=== PATIENT | female | born 1965 | race Two or more races ===

== ENCOUNTER → 2017-01-05 | Outpatient (REF) | payer OTHER | LOC: M SFHCLERA 12:53 | PROVIDERS: ATTEND Nurse Practitioner Family | DX: N30.01 Acute cystitis with hematuria (principal) ==

== ENCOUNTER → 2017-05-01 | Outpatient (REF) | payer OTHER | LOC: M SFHCPLAZ 12:51 | PROVIDERS: ATTEND Nurse Practitioner Family | DX: R31.0 Gross hematuria (principal) ==

== ENCOUNTER → 2017-05-01 | Outpatient (CLI) | payer OTHER ==
[2017-05-01 13:21] LABS: MEAN CORPUSCULAR HEMOGLOBIN 31.7 pg (27.0-33.0); MEAN CORPUSCULAR VOLUME 96.1 fl (80.0-96.0); PLATELET COUNT, AUTOMATED 256 10^3/uL (150-450); RED CELL DISTRIBUTION WIDTH 13.6 % (11.5-14.5); WHITE BLOOD COUNT 9.7 10^3/uL (4.0-10.0)
[2017-05-01 15:13] LABS: ANION GAP 7 MEQ/L (8-16); BLOOD UREA NITROGEN 20 MG/DL (7-18); CALCIUM LEVEL 9.2 MG/DL (8.5-10.1); CARBON DIOXIDE LEVEL 27 MEQ/L (21-32); CHLORIDE LEVEL 107 MEQ/L (98-107); CREATININE FOR GFR 0.64 MG/DL (0.55-1.02); GLOMERULAR FILTRATION RATE > 60.0 (>51); GLUCOSE, FASTING 75 MG/DL (70-105); POTASSIUM SERUM 4.4 MEQ/L (3.5-5.1); SODIUM LEVEL 141 MEQ/L (136-145)
== END ==
LOC: M SMT 11:23
PROVIDERS: ATTEND Nurse Practitioner Family
DX: E27.9 Disorder of adrenal gland, unspecified (principal)

== ENCOUNTER → 2020-06-08 | Outpatient (CLI) | payer OTHER ==
[~2020-06-08] MED LIST: GASTROGRAFIN SOLUTION 30ML (Q9963) As Ordered ONE; ISOVUE-370 76% 100ML VIAL As Ordered ONE
--- NOTE | 2020-06-08 16:05 | REPVR ---
PROCEDURE INFORMATION: Exam: MR Lumbar Spine Without Contrast. Exam date and time: 06/08/2020 3:30 PM Age: 54 years old Clinical indication: Low back pain. TECHNIQUE: Imaging protocol: Multiplanar magnetic resonance images of the lumbar spine without intravenous contrast. COMPARISON: No relevant prior studies available. FINDINGS: Vertebrae: Unremarkable. Spinal cord: Normal signal. No cord compression. L1-L2: No significant disc disease. No significant spinal canal stenosis. No neural foraminal stenosis. L2-L3: There is degenerative disc disease including disc space narrowing and dessication. There is a moderate disc bulge with a small superimposed central disc herniation. There is also a small right foraminal disc herniation. There is moderate bilateral neural foraminal narrowing, right worse than left. There is facet arthropathy and ligamentum flavum hypertrophy. There is mild/moderate spinal canal stenosis. L3-L4: There is grade 1 anterior spondylolisthesis at this level. There is disc space narrowing and desiccation. There are moderate degenerative end plate changes at this level. There is moderate disc bulging. There is a posterior central annular tear. There is a small right paracentral disc protrusion. There is exuberant bilateral facet arthropathy and ligamentum flavum hypertrophy. There is moderate/severe spinal canal stenosis, right worse than left. There is severe spinal canal stenosis. L4-L5: There is mild retrolisthesis at this level. There is disc space narrowing and desiccation. There are moderate degenerative end plate changes at this level. There is moderate disc bulging. There is a superimposed left foraminal disc herniation. There is severe left-sided neuroforaminal narrowing. There is compromise of the left lateral recess. There is exuberant bilateral facet arthropathy and ligamentum flavum hypertrophy. There is moderate spinal canal stenosis. L5-S1: There is disc space narrowing and desiccation. There are moderate degenerative end plate changes at this level. There is a moderate disc bulge with a moderate broad-based paracentral/subarticular/foraminal disc herniation. There is severe right-sided neuroforaminal narrowing. There is facet arthropathy and ligamentum flavum hypertrophy. There is mild spinal canal stenosis. Sacrum/coccyx: There is a 1.7 cm sacral cyst. Kidneys and ureters: There is a 7.4 cm incompletely imaged right renal cyst. There is a cylindrical low signal mass inferior to the left kidney, not fully characterized on this exam. Soft tissues: Unremarkable. IMPRESSION: 1. Advanced multilevel degenerative changes causing variable degrees of spinal canal and neuroforaminal narrowing as described above. Severe spinal canal stenosis at L3/4. Please see details above. 2. There is a 1.7 cm sacral cyst. 3. There is a 7.4 cm incompletely imaged right renal cyst. Followup renal ultrasound is recommended. 4. There is a cylindrical low signal mass inferior to the left kidney, not fully characterized on this exam. Followup renal ultrasound is recommended. If this is not adequately characterized on ultrasound, follow-up CT scan of the abdomen/pelvis would be recommended. Electronically signed by: Hao Samano On 06/08/2020 16:06:13 PM
== END ==
LOC: M RAD 14:26
PROVIDERS: ATTEND Physician Assistant
DX: N28.89 Other specified disorders of kidney and ureter (principal); N28.1 Cyst of kidney, acquired; M51.26 Other intervertebral disc displacement, lumbar region; L05.91 Pilonidal cyst without abscess
CPT/HCPCS: 72148; 74178; Q9963; Q9967

== ENCOUNTER → 2020-07-07 | Outpatient (CLI) | payer OTHER ==
--- NOTE | 2020-07-07 10:59 | REP ---
INDICATION: RUQ PAIN. COMPARISON: None. TECHNIQUE/RADIOTRACER AND DOSE: 6.4 mCi of Technetium-99m mebrofenin was injected and sequential anterior images are acquired. 65 minutes after the mebrofenin injection, the patient consumed 8 ounces Ensure and an additional 60 minutes of imaging was acquired. Regions of interest are plotted around the gallbladder. FINDINGS: The initial hepatocellular parenchymal uptake phase is normal and homogeneous. Intra- and extra-hepatic bile ducts are labeled by the 15-minute image. The gallbladder is first labeled on the 35-minute image. There is normal washout from the liver parenchyma into the gallbladder and small intestine on subsequent images. The gallbladder ejection fraction is 49%. Values greater than 35% are considered normal with this technique. IMPRESSION: Normal hepatobiliary scan and normal gallbladder ejection fraction. <Electronically signed by Donato Villa > 07/07/20 [id number]
== END ==
LOC: M RAD 08:17
PROVIDERS: ATTEND Physician Assistant
DX: R10.11 Right upper quadrant pain (principal); K21.9 Gastro-esophageal reflux disease without esophagitis
CPT/HCPCS: 78227; A9537

== ENCOUNTER → 2020-09-07 | Outpatient (CLI) | payer OTHER ==
[2020-09-07 11:52] LABS: HEMATOCRIT 44.7 % (36.0-47.0); HEMOGLOBIN 14.5 g/dl (12.0-15.5); MEAN CORPUSCULAR HEMOGLOBIN 31.2 pg (27.0-33.0); MEAN CORPUSCULAR HGB CONC 32.4 g/dl (32.0-36.5); MEAN CORPUSCULAR VOLUME 96.1 fl (80.0-96.0); PLATELET COUNT, AUTOMATED 275 10^3/uL (150-450); RED BLOOD COUNT 4.65 10^6/uL (4.00-5.40); WHITE BLOOD COUNT 7.1 10^3/uL (4.0-10.0)
[2020-09-07 12:05] LABS: INR 0.99; PROTHROMBIN TIME 13.3 SECONDS (12.5-14.3)
[2020-09-07 12:06] LABS: PARTIAL THROMBOPLASTIN TIME 29.1 SECONDS (24.2-38.5)
[2020-09-07 14:58] LABS: BLOOD UREA NITROGEN 12 MG/DL (7-18); CALCIUM LEVEL 9.7 MG/DL (8.5-10.1); CARBON DIOXIDE LEVEL 23 MEQ/L (21-32); CHLORIDE LEVEL 109 MEQ/L (98-107); CREATININE FOR GFR 0.51 MG/DL (0.55-1.30); GLOMERULAR FILTRATION RATE > 60.0 (>51); GLUCOSE, FASTING 91 MG/DL (70-100); POTASSIUM SERUM 4.1 MEQ/L (3.5-5.1); SODIUM LEVEL 143 MEQ/L (136-145)
== END ==
LOC: M LAB 10:22
PROVIDERS: ATTEND Nurse Practitioner Family
DX: N28.1 Cyst of kidney, acquired (principal)

== ENCOUNTER → 2020-10-03 | Outpatient (CLI) | payer OTHER ==
[~2020-10-03] MED LIST changes: -GASTROGRAFIN SOLUTION 30ML (Q9963) As Ordered ONE; -ISOVUE-370 76% 100ML VIAL As Ordered ONE; +LIDOCAINE 1% MDV 20ML VIAL As Ordered ONE; +SODIUM BICARBONATE 8.4% INJ 50MEQ 50 ML VIAL As Ordered ONE
[2020-10-03 14:42] VITALS: BP 153/80
--- NOTE | 2020-10-03 18:46 | REP ---
INDICATION: LARGE RENAL CYST The patient has a history of right renal cyst measuring approximately 12.5 x 8.0 x 8.8 cm. COMPARISON: None. TECHNIQUE: The procedure was performed by ASHA Coffman, under the direct supervision of Dr. Sanchez The risks and benefits of the procedure were explained to the patient and an informed consent was obtained both verbally and written. Directly prior to the start of the procedure a formal time-out was completed in the procedure room. The right renal cyst was localized using ultrasound guidance. The skin was prepped and draped in a sterile fashion. Twenty ML of buffered lidocaine was used as a local anesthetic. An 8-I[place]ic multi side-hole pigtail catheter was inserted using trocar technique. FINDINGS: 405 mL was aspirated from the cyst with a small amount of residual remaining. The specimens were sent to the laboratory for further analysis. The catheter was removed, and a sterile dressing was applied. The patient tolerated the procedure well and there were no immediate complications. After the appropriate amount of monitored convalescence, the patient was discharged from the department. IMPRESSION: Ultrasound-guided right renal cyst aspiration. <Electronically signed by Madina Brock > 10/03/20 1521 <Electronically signed by Giacomo Sanchez > 10/03/20 [id number]
== END ==
LOC: M IRPRO 11:33
PROVIDERS: ATTEND Nurse Practitioner Family
DX: N28.1 Cyst of kidney, acquired (principal)

== ENCOUNTER → 2021-07-26 | Outpatient (CLI) | payer OTHER ==
[~2021-07-26] MED LIST changes: +ISOVUE-370 76% 100ML VIAL As Ordered ONE; -LIDOCAINE 1% MDV 20ML VIAL As Ordered ONE; -SODIUM BICARBONATE 8.4% INJ 50MEQ 50 ML VIAL As Ordered ONE
== END ==
LOC: M RAD 16:19
PROVIDERS: ATTEND Physician Assistant
DX: N28.1 Cyst of kidney, acquired (principal)
CPT/HCPCS: 74170; Q9967

== ENCOUNTER → 2021-08-07 | Outpatient (CLI) | payer OTHER ==
[~2021-08-07] MED LIST changes: +ASPI81CH33 PO; -ISOVUE-370 76% 100ML VIAL As Ordered ONE; +OMEP-173 PO
== END ==
LOC: M LABSMTC 10:53
PROVIDERS: ATTEND Anesthesiology
DX: Z01.812 Encounter for preprocedural laboratory examination (principal); Z20.822 Contact with and (suspected) exposure to COVID-19

== ENCOUNTER 2021-08-10 06:10 | Inpatient (IN) | payer OTHER ==
[2021-08-10] VITALS (7 sets, daily range): BP systolic 124–145; BP diastolic 70–90
[~2021-08-10] VITALS: Ht 165.1 cm; Wt 95.7 kg
[~2021-08-10 06:10] MED LIST changes: +LIDOCAINE 1% MDV 20ML VIAL SQ PRN; +LR 1,000 ML IV ONE; +ceFAZolin SOD 2 GM in IV 1 EA IV ONE
[2021-08-10] MEDS ORDERED: MIDAZOLAM INJ 2MG/2ML VIAL (J2250 PER 1MG) As Ordered ONE (06:52)
[2021-08-10] MEDS ORDERED: ePHEDrine SULFATE 25 MG/5 ML(5MG/ML) SYRINGE As Ordered ONE (06:53)
[2021-08-10] MEDS ORDERED: fentaNYL 100 MCG/2 ML INJECTION As Ordered ONE ×2 (06:53→09:35)
[2021-08-10] MEDS ORDERED: PHENYLephrine 500MCG 5ML (100MCG/ML) SYRINGE As Ordered ONE (06:53)
[2021-08-10] MEDS ORDERED: SUGAMMADEX SODIUM 500 MG/5 ML VIAL (BRIDION) As Ordered ONE (06:54)
[2021-08-10] MEDS ORDERED: LIDOCAINE 2% 100MG/5ML SDV (FOR ANES.) As Ordered ONE (06:54)
[2021-08-10] MEDS ORDERED: ROCURONIUM BROMIDE 50 MG/5 ML VIAL As Ordered ONE ×3 (06:54→10:30)
[2021-08-10] MEDS ORDERED: propofoL 200 MG/20 ML VIAL As Ordered ONE (06:54)
[2021-08-10] MEDS ORDERED: dexameTHASONE 4 MG/ML 1ML VIAL (J1100 PER 1MG) As Ordered ONE (06:54)
[2021-08-10] MEDS ORDERED: ONDANSETRON 4MG/2ML VIAL As Ordered ONE (06:54)
[2021-08-10] MEDS ORDERED: ACETAMINOPHEN 1000MG 100ML IV BTL (OFIRMEV) (J0131 PER 10MG) As Ordered ONE (06:54)
[2021-08-10] MEDS ORDERED: LIDOCAINE 1% SDV 30ML VIAL As Ordered ONE (07:12)
[2021-08-10] MEDS ORDERED: BUPIVACAINE HCL 0.25% 30ML VIAL As Ordered ONE (07:12)
[2021-08-10] MEDS ORDERED: NS 1,000 ML IV SCH (07:25)
[2021-08-10] MEDS ORDERED: PERCOCET 5MG/325MG TAB PO PRN (07:25)
[2021-08-10] MEDS ORDERED: ACETAMINOPHEN TAB 650MG DOSE (2X325MG) PO PRN (07:25)
[2021-08-10] MEDS ORDERED: ONDANSETRON 4MG/2ML VIAL IV PRN ×2 (07:25→09:45)
[2021-08-10] MEDS ORDERED: GLYCOPYRROLATE INJ 0.2 MG/ML 2 ML VIAL As Ordered ONE (08:41)
[2021-08-10] MEDS: DOCUSATE SODIUM 100MG CAPSULE PO SCH ×2 (09:00→21:00)
[2021-08-10] MEDS: fentaNYL 100 MCG/2 ML INJECTION IV PRN ×4 (09:36→09:51)
[2021-08-10] MEDS ORDERED: LR 1,000 ML IV SCH (09:45)
[2021-08-10 10:16] LABS: HEMATOCRIT 42.6 % (36.0-47.0); HEMOGLOBIN 14.2 g/dl (12.0-15.5); MEAN CORPUSCULAR HEMOGLOBIN 31.7 pg (27.0-33.0); MEAN CORPUSCULAR HGB CONC 33.3 g/dl (32.0-36.5); MEAN CORPUSCULAR VOLUME 95.1 fl (80.0-96.0); PLATELET COUNT, AUTOMATED 315 10^3/uL (150-450); RED BLOOD COUNT 4.48 10^6/uL (4.00-5.40); WHITE BLOOD COUNT 13.3 10^3/uL (4.0-10.0)
[2021-08-10] MEDS: oxyCODONE 5MG TAB PO PRN ×2 (10:18→13:27)
[2021-08-10 10:50] LABS: BLOOD UREA NITROGEN 10 MG/DL (7-18); CALCIUM LEVEL 8.9 MG/DL (8.5-10.1); CARBON DIOXIDE LEVEL 30 MEQ/L (21-32); CHLORIDE LEVEL 108 MEQ/L (98-107); CREATININE FOR GFR 0.73 MG/DL (0.55-1.30); GLOMERULAR FILTRATION RATE > 60.0 (>51); GLUCOSE, FASTING 155 MG/DL (70-100); POTASSIUM SERUM 3.8 MEQ/L (3.5-5.1); SODIUM LEVEL 141 MEQ/L (136-145)
[2021-08-10] MEDS: ceFAZolin SOD 1 GM in D5W MINI-BAG PLUS 50 ML IV SCH (16:27)
[2021-08-10] MEDS: PERCOCET 5MG/325MG TAB PO PRN (19:50)
[2021-08-10] MEDS: HEPARIN SOD (PORCINE) 5000UNITS/ML 1ML VIAL/SYRINGE SC SCH (22:01)
[2021-08-11] MEDS: ceFAZolin SOD 1 GM in D5W MINI-BAG PLUS 50 ML IV SCH (00:07)
[2021-08-11 02:00] VITALS: BP 131/74
[2021-08-11] MEDS: PERCOCET 5MG/325MG TAB PO PRN ×2 (03:44→10:15)
[2021-08-11] MEDS: HEPARIN SOD (PORCINE) 5000UNITS/ML 1ML VIAL/SYRINGE SC SCH ×2 (05:57→14:00)
[2021-08-11 06:00] VITALS: BP 138/83
[2021-08-11 07:59] LABS: HEMOGLOBIN 12.7 g/dl (12.0-15.5); MEAN CORPUSCULAR HEMOGLOBIN 31.4 pg (27.0-33.0); MEAN CORPUSCULAR HGB CONC 32.6 g/dl (32.0-36.5); MEAN CORPUSCULAR VOLUME 96.5 fl (80.0-96.0); PLATELET COUNT, AUTOMATED 274 10^3/uL (150-450); RED BLOOD COUNT 4.04 10^6/uL (4.00-5.40); WHITE BLOOD COUNT 12.8 10^3/uL (4.0-10.0)
[2021-08-11] MEDS: DOCUSATE SODIUM 100MG CAPSULE PO SCH (08:20)
[2021-08-11 08:28] LABS: BLOOD UREA NITROGEN 12 MG/DL (7-18); CALCIUM LEVEL 8.7 MG/DL (8.5-10.1); CARBON DIOXIDE LEVEL 29 MEQ/L (21-32); CHLORIDE LEVEL 106 MEQ/L (98-107); CREATININE FOR GFR 0.61 MG/DL (0.55-1.30); GLOMERULAR FILTRATION RATE > 60.0 (>51); GLUCOSE, FASTING 90 MG/DL (70-100); POTASSIUM SERUM 3.9 MEQ/L (3.5-5.1); SODIUM LEVEL 141 MEQ/L (136-145)
[2021-08-11] MEDS ORDERED: OMEPRAZOLE 20MG CAP PO SCH (09:00)
[2021-08-11 10:00] VITALS: BP 128/70
[2021-08-11] MEDS ORDERED: COLA100C5 PO (13:20)
[2021-08-11] MEDS ORDERED: PERCOCET PO (13:20)
== END 2021-08-11 15:10 | disposition home or self-care (01) | DRG 443 ==
LOC: M OR 06:10 → M MS5PR 13:45
PROVIDERS: ADMIT Urology; ATTEND Urology
PROC: 8E0W4CZ Robotic Assisted Procedure of Trunk Region, Percutaneous Endoscopic Approach (ICD-10-PCS; 2021-08-10)
PROC: 0TD Urinary System, Extraction (ICD-10-PCS; principal; 2021-08-10 07:30)
DX: N28.1 Cyst of kidney, acquired (principal); Z79.82 Long term (current) use of aspirin; Z79.899 Other long term (current) drug therapy

== ENCOUNTER → 2021-08-24 | Outpatient (CLI) | payer OTHER ==
[~2021-08-24] MED LIST changes: +COLA100C5 PO; -LIDOCAINE 1% MDV 20ML VIAL SQ PRN; -LR 1,000 ML IV ONE; +PERCOCET PO; -ceFAZolin SOD 2 GM in IV 1 EA IV ONE
[2021-08-24 10:11] LABS: HEMOGLOBIN 14.1 g/dl (12.0-15.5); MEAN CORPUSCULAR HEMOGLOBIN 31.5 pg (27.0-33.0); MEAN CORPUSCULAR HGB CONC 32.8 g/dl (32.0-36.5); PLATELET COUNT, AUTOMATED 463 10^3/uL (150-450); RED BLOOD COUNT 4.48 10^6/uL (4.00-5.40); WHITE BLOOD COUNT 8.5 10^3/uL (4.0-10.0)
[2021-08-24 10:54] LABS: BLOOD UREA NITROGEN 19 MG/DL (7-18); CALCIUM LEVEL 9.3 MG/DL (8.5-10.1); CARBON DIOXIDE LEVEL 31 MEQ/L (21-32); CHLORIDE LEVEL 107 MEQ/L (98-107); CREATININE FOR GFR 0.76 MG/DL (0.55-1.30); GLOMERULAR FILTRATION RATE > 60.0 (>51); GLUCOSE, FASTING 94 MG/DL (70-100); SODIUM LEVEL 140 MEQ/L (136-145)
== END ==
LOC: M LAB 09:36
PROVIDERS: ATTEND Urology
DX: N28.1 Cyst of kidney, acquired (principal)

== ENCOUNTER → 2022-06-12 | Outpatient (REF) | payer OTHER ==
[2022-06-12 10:40] LABS: APPEARANCE, URINE MANUAL CLEAR (CLEAR); BILIRUBIN, URINE MANUAL NEGATIVE (NEGATIVE); COLOR, URINE MANUAL LT YELLOW (YELLOW); GLUCOSE, URINE (UA) MANUAL NEGATIVE (NEGATIVE); KETONE, URINE MANUAL NEGATIVE (NEGATIVE); LEUKOCYTE ESTERASE, URINE MAN NEGATIVE (NEGATIVE); NITRITE, URINE MANUAL NEGATIVE (NEGATIVE); PROTEIN, URINE MANUAL NEGATIVE (NEGATIVE); UROBILINOGEN, URINE MANUAL NORMAL (NORMAL)
[2022-06-12 10:41] LABS: BLOOD URINE MANUAL TRACE (NEGATIVE)
[2022-06-12 10:53] LABS: WBC, URINE 0-1 /hpf (0-3)
[2022-06-12 10:54] LABS: BACTERIA, URINE SMALL AMOUNT; HYALINE CAST, URINE NONE SEEN /lpf (0-1); SQUAMOUS EPITHELIAL CELL URINE SMALL AMOUNT /hpf (SMALL AMT)
== END ==
LOC: M SMT 10:07
PROVIDERS: ATTEND Physician Assistant
DX: R10.9 Unspecified abdominal pain (principal)

== ENCOUNTER → 2022-06-28 | Outpatient (CLI) | payer OTHER | LOC: M RAD 09:40 | PROVIDERS: ATTEND Physician Assistant | DX: N28.89 Other specified disorders of kidney and ureter (principal); R10.9 Unspecified abdominal pain ==

== ENCOUNTER → 2023-09-26 | Outpatient (CLI) | payer OTHER | LOC: M RAD 14:38 | PROVIDERS: ATTEND Physician Assistant | DX: N28.1 Cyst of kidney, acquired (principal) ==